=== PATIENT | female | born 2000 | race Caucasian/White ===

== ENCOUNTER 2024-06-04 04:36 | Inpatient (IN) | payer MEDICAID ==
[2024-06-04] MEDS ORDERED: Sodium Chloride 0.9% 10 ML Syringe FLUSH PRN (05:12)
[2024-06-04] MEDS ORDERED: Calcium Carbonate 500 MG Tab.Chew PO PRN (05:12)
[2024-06-04] MEDS ORDERED: Ondansetron 4 MG/2 ML SDV IVPUSH PRN (05:12)
[2024-06-04] MEDS ORDERED: Oxytocin/0.9 % Sodium Chloride 30 UNIT/500 ML BAG IV SCH (05:15)
[2024-06-04 06:03] LABS: BASOPHILS PERCENT AUTO 0.2 % (0.0-1.0); EOSINOPHILS ABSOLUTE AUTO 0.1 K/mm3 (0.0-0.4); EOSINOPHILS PERCENT AUTO 0.9 % (0.0-6.0); HEMATOCRIT 38.8 % (37.0-47.0); HEMOGLOBIN 12.6 gm/dl (12.0-16.0); IMMATURE GRAN ABSOLUTE AUTO 0.03 K/mm3 (0.00-0.05); IMMATURE GRAN PERCENT AUTO 0.3 % (0.0-0.4); LYMPHOCYTES ABSOLUTE AUTO 2.1 K/mm3 (1.0-4.8); LYMPHOCYTES PERCENT AUTO 21.2 % (24.0-44.0); MEAN CORPUSCULAR HEMOGLOBIN 25.9 pg (28.0-32.0); MEAN CORPUSCULAR HGB CONC 32.5 g/dl (32.0-36.0); MEAN CORPUSCULAR VOLUME 79.8 fl (83.0-99.0); MEAN PLATELET VOLUME 10.7 fl (9.4-12.3); MONOCYTES ABSOLUTE AUTO 0.6 K/mm3 (0.0-0.8); MONOCYTES PERCENT AUTO 6.3 % (0.0-8.0); NEUTROPHILS ABSOLUTE AUTO 6.9 K/mm3 (1.8-7.7); NEUTROPHILS PERCENT AUTO 71.1 % (41.0-71.0); PLATELET COUNT,PLT 213 K/mm3 (150-400); RED BLOOD CELL COUNT 4.86 M/mm3 (4.10-5.30); WHITE BLOOD CELL COUNT,WBC 9.76 K/mm3 (3.9-11.3)
[2024-06-04] MEDS: Penicillin G Potassium 5 MILLUNITS in Sodium Chloride 0.9% 100 ML IV ONE (06:27)
[2024-06-04] MEDS: Lactated Ringers 1,000 ML IV SCH (06:27)
[2024-06-04] MEDS ORDERED: Penicillin G Potassium 2.5 MILLUNITS in Sodium Chloride 0.9% 100 ML IV SCH (09:15)
[2024-06-04] MEDS ORDERED: ePHEDrine 50 MG/ML SDV IVPUSH PRN (09:34)
[2024-06-04] MEDS ORDERED: diphenhydrAMINE 50 MG/ML SDV IVPUSH PRN (09:34)
[2024-06-04] MEDS: Penicillin G Potassium 2.5 MILLUNITS in Sodium Chloride 0.9% 100 ML IV SCH (10:59)
[2024-06-04] MEDS: Oxytocin/0.9 % Sodium Chloride 30 UNIT/500 ML BAG IV SCH (15:35)
[2024-06-04] MEDS: Nalbuphine 10 MG/1 ML Vial IVPUSH PRN (17:34)
[2024-06-05] MEDS: Bupivacaine/fentaNYL/NS 100 ML Bag EPIDUR PRN (01:09)
[2024-06-05] MEDS: Lidocaine 1% 50 ML MDV INJECT PRN (02:22)
[2024-06-05] MEDS: Witch Hazel Medicated Pads 40/Jar TOP PRN (03:45)
[2024-06-05] MEDS: Benzocaine/Menthol 20%-0.5% Spray 78 GM Cannister TOP PRN (03:45)
[2024-06-05] MEDS: Acetaminophen 325 MG Tab PO ONE (04:10)
[2024-06-05] MEDS: Ibuprofen 600 MG Tab PO SCH (04:17)
[2024-06-05] MEDS: Acetaminophen 325 MG Tab PO PRN (07:58)
[2024-06-05 09:42] LABS: HEMATOCRIT 32.1 % (37.0-47.0); HEMOGLOBIN 10.2 gm/dl (12.0-16.0); MEAN CORPUSCULAR HEMOGLOBIN 25.8 pg (28.0-32.0); MEAN CORPUSCULAR HGB CONC 31.8 g/dl (32.0-36.0); MEAN CORPUSCULAR VOLUME 81.3 fl (83.0-99.0); MEAN PLATELET VOLUME 11.1 fl (9.4-12.3); PLATELET COUNT,PLT 182 K/mm3 (150-400); RED BLOOD CELL COUNT 3.95 M/mm3 (4.10-5.30); WHITE BLOOD CELL COUNT,WBC 16.24 K/mm3 (3.9-11.3)
[2024-06-05] MEDS: Prenatal Multivitamin with Calcium/Folic Acid/Iron Tab PO SCH (10:20)
[2024-06-05] MEDS: Docusate Sodium 100 MG Cap PO PRN (15:52)
== END 2024-06-07 13:20 | disposition home or self-care (01) | DRG 806 ==
LOC: JD.OBCHECK 04:36 → JD.OB 04:43 → JD.OBCHECK 05:33 → OBSVTOIN 06-05 02:28 → JD.OB 06-05 02:29
PROVIDERS: ADMIT Family Medicine; ATTEND Family Medicine
PROC: 10E0XZZ Delivery of Products of Conception, External Approach (ICD-10-PCS; principal; 2024-06-05)
PROC: 0W8NXZZ Division of Female Perineum, External Approach (ICD-10-PCS; principal; 2024-06-05)
PROC: 3E0R3BZ Introduction of Anesthetic Agent into Spinal Canal, Percutaneous Approach (ICD-10-PCS; principal; 2024-06-05)
PROC: 10907ZC Drainage of Amniotic Fluid, Therapeutic from Products of Conception, Via Natural or Artificial Opening (ICD-10-PCS; principal; 2024-06-05)
DX: O48.0 Post-term pregnancy (principal); D62 Acute posthemorrhagic anemia; Z37.0 Single live birth; O98.82 Other maternal infectious and parasitic diseases complicating childbirth; O99.824 Streptococcus B carrier state complicating childbirth; O90.81 Anemia of the puerperium; A60.09 Herpesviral infection of other urogenital tract; H54.7 Unspecified visual loss; Z3A.40 40 weeks gestation of pregnancy; Z79.899 Other long term (current) drug therapy; Z88.8 Allergy status to other drugs, medicaments and biological substances; Z72.0 Tobacco use
CPT/HCPCS: 01967; 36415; 51702; 59025; 59409; 85025; 85027; 86592; 86850; 86900; 86901; A9270-GY; J2003; J2300; J2540; J3490; J7120; J7999